=== PATIENT | female | born 1980 | race Asian ===

== ENCOUNTER 2016-10-11 09:30 | Observation (INO) | payer MEDICAID ==
[~2016-10-11] VITALS: Ht 134.6 cm; Wt 61.7 kg
[2016-10-11 10:16] VITALS: BP 113/67
== END 2016-10-11 10:40 | disposition home or self-care (01) ==
LOC: 4S 09:40
PROVIDERS: ADMIT Obstetrics & Gynecology; ATTEND Obstetrics & Gynecology
DX: Z34.93 Encounter for supervision of normal pregnancy, unspecified, third trimester (principal); Z3A.34 34 weeks gestation of pregnancy
CPT/HCPCS: 59025; G0378

== ENCOUNTER 2016-10-14 08:10 | Observation (INO) | payer MEDICAID ==
[~2016-10-14] VITALS: Ht 142.2 cm; Wt 62.9 kg
[2016-10-14] MEDS ORDERED: PREN1TAB80 PO (08:54)
== END 2016-10-14 09:40 | disposition home or self-care (01) ==
LOC: 4S 08:10
PROVIDERS: ADMIT Obstetrics & Gynecology; ATTEND Obstetrics & Gynecology
DX: Z34.93 Encounter for supervision of normal pregnancy, unspecified, third trimester (principal); Z3A.35 35 weeks gestation of pregnancy
CPT/HCPCS: 59025; G0378

== ENCOUNTER 2016-10-18 10:10 | Observation (INO) | payer MEDICAID ==
[~2016-10-18] VITALS: Ht 142.2 cm; Wt 64.0 kg
[~2016-10-18 10:10] MED LIST: PREN1TAB80 PO
[2016-10-18 10:23] VITALS: BP 106/67
== END 2016-10-18 11:10 | disposition home or self-care (01) ==
LOC: 4S 10:10
PROVIDERS: ADMIT Obstetrics & Gynecology; ATTEND Obstetrics & Gynecology
DX: O99.013 Anemia complicating pregnancy, third trimester (principal); Z3A.35 35 weeks gestation of pregnancy
CPT/HCPCS: 59025; G0378

== ENCOUNTER 2016-10-21 11:50 | Observation (INO) | payer MEDICAID ==
[~2016-10-21] VITALS: Ht 142.2 cm; Wt 64.4 kg
[2016-10-21 12:32] VITALS: BP 109/51
== END 2016-10-21 12:40 | disposition home or self-care (01) ==
LOC: 4S 11:50
PROVIDERS: ADMIT Obstetrics & Gynecology; ATTEND Obstetrics & Gynecology
DX: O09.523 Supervision of elderly multigravida, third trimester (principal); Z3A.35 35 weeks gestation of pregnancy
CPT/HCPCS: 59025; G0378

== ENCOUNTER 2016-10-25 14:13 | Observation (INO) | payer MEDICAID ==
[~2016-10-25] VITALS: Ht 134.6 cm; Wt 64.9 kg
[2016-10-25 14:32] VITALS: BP 111/67
== END 2016-10-25 14:55 | disposition home or self-care (01) ==
LOC: 4S 14:13
PROVIDERS: ADMIT Obstetrics & Gynecology; ATTEND Obstetrics & Gynecology
DX: Z34.93 Encounter for supervision of normal pregnancy, unspecified, third trimester (principal); Z3A.36 36 weeks gestation of pregnancy
CPT/HCPCS: 59025; G0378

== ENCOUNTER 2016-10-28 10:31 | Observation (INO) | payer MEDICAID ==
[~2016-10-28] VITALS: Ht 142.2 cm; Wt 64.4 kg
[2016-10-28 10:38] VITALS: BP 106/69
== END 2016-10-28 11:05 | disposition home or self-care (01) ==
LOC: 4S 10:31
PROVIDERS: ADMIT Obstetrics & Gynecology; ATTEND Obstetrics & Gynecology
DX: O09.523 Supervision of elderly multigravida, third trimester (principal); Z3A.37 37 weeks gestation of pregnancy
CPT/HCPCS: 59025; G0378

== ENCOUNTER 2016-11-01 11:05 | Observation (INO) | payer MEDICAID ==
[~2016-11-01] VITALS: Ht 142.2 cm; Wt 67.6 kg
[2016-11-01] MEDS ORDERED: FERR-89 PO (11:20)
[2016-11-01 11:21] VITALS: BP 98/56
== END 2016-11-01 12:20 | disposition home or self-care (01) ==
LOC: 4S 11:05
PROVIDERS: ADMIT Obstetrics & Gynecology; ATTEND Obstetrics & Gynecology
DX: O99.013 Anemia complicating pregnancy, third trimester (principal); O09.523 Supervision of elderly multigravida, third trimester; Z3A.37 37 weeks gestation of pregnancy
CPT/HCPCS: 59025; G0378

== ENCOUNTER 2016-11-04 10:25 | Observation (INO) | payer MEDICAID ==
[~2016-11-04] VITALS: Ht 142.2 cm; Wt 64.4 kg
[~2016-11-04 10:25] MED LIST changes: +FERR-89 PO
[2016-11-04 11:15] VITALS: BP 101/65
== END 2016-11-04 11:10 | disposition home or self-care (01) ==
LOC: 4S 10:25
PROVIDERS: ADMIT Obstetrics & Gynecology; ATTEND Obstetrics & Gynecology
DX: Z34.93 Encounter for supervision of normal pregnancy, unspecified, third trimester (principal); Z3A.38 38 weeks gestation of pregnancy
CPT/HCPCS: 59025; G0378

== ENCOUNTER 2016-11-08 10:20 | Observation (INO) | payer MEDICAID ==
[~2016-11-08] VITALS: Ht 134.6 cm; Wt 64.9 kg
[~2016-11-08 10:20] MED LIST changes: -FERR-89 PO; +FERS325 PO
[2016-11-08 10:27] VITALS: BP 104/56
[2016-11-13] MEDS ORDERED: FERS325 PO (12:18)
== END 2016-11-08 11:15 | disposition home or self-care (01) ==
LOC: 4S 10:20
PROVIDERS: ADMIT Obstetrics & Gynecology; ATTEND Obstetrics & Gynecology
DX: O26.893 Other specified pregnancy related conditions, third trimester (principal); B95.1 Streptococcus, group B, as the cause of diseases classified elsewhere; O09.523 Supervision of elderly multigravida, third trimester; Z3A.38 38 weeks gestation of pregnancy
CPT/HCPCS: 59025; G0378

== ENCOUNTER 2016-11-11 06:08 | Inpatient (IN) | payer MEDICAID ==
[~2016-11-11] VITALS: Ht 147.3 cm; Wt 64.4 kg
[~2016-11-11 06:08] MED LIST changes: +FERR-89 PO; -FERS325 PO; +RINGERS SOLUTION,LACTATED 1,000 ML IV ONE
[2016-11-11] MEDS ORDERED: CITRIC ACID/SODIUM CITRATE 30 ML SOLUTION UDCUP PO ONE (06:15)
[2016-11-11] MEDS ORDERED: METOCLOPRAMIDE HCL 5 MG/ML 2 ML VIAL IVP ONE (06:15)
[2016-11-11 06:16] VITALS: BP 113/67
[2016-11-11 06:56] LABS: BASOPHILS # (AUTO) 0.03 K/uL (0.00-0.20); BASOPHILS % (AUTO) 0.4 % (0.0-2.0); EOSINOPHILS # (AUTO) 0.13 K/uL (0.00-0.70); EOSINOPHILS % (AUTO) 1.91 % (1.0-6.0); HEMATOCRIT 29.5 % (36-46); HEMOGLOBIN 10.1 g/dL (12.0-16.0); LYMPHOCYTES % (AUTO) 29.9 % (22.0-44.0); MEAN CORPUSCULAR HEMOGLOBIN 31.5 pg (26.0-34.0); MEAN CORPUSCULAR HGB CONC 34.3 G/dL (31.0-37.0); MEAN CORPUSCULAR VOLUME 92 fL (80-100); MONOCYTES # (AUTO) 0.4 K/uL (0.1-1.0); MONOCYTES % (AUTO) 6.7 % (2.0-9.0); NEUTROPHILS # (AUTO) 4.1 K/uL (1.8-7.7); NEUTROPHILS % (AUTO) 61.1 % (40.0-70.0); RED BLOOD CELL COUNT(AUTO) 3.21 MIL/uL (4.00-5.20); RED CELL DISTRIBUTION WIDTH 12.5 % (11.5-14.5); WHITE BLOOD COUNT (AUTO) 6.6 K/uL (4.5-11.0)
[2016-11-11] MEDS ORDERED: CeFAZolin 2 GM/DEXTROSE 50 ML IV ONE (07:11)
[2016-11-11] MEDS ORDERED: RINGERS SOLUTION,LACTATED 1,000 ML IV ONE ×2 (07:12→09:13)
[2016-11-11] MEDS ORDERED: MORPHINE SULFATE/PF 0.5 MG/ML 10 ML AMP ONE (07:12)
[2016-11-11] MEDS ORDERED: FentaNYL CITRATE-PF 100 MCG/2 ML VIAL ONE (07:12)
[2016-11-11] MEDS ORDERED: SODIUM CHLORIDE 0.9% 100 ML ONE ×2 (07:29→07:37)
[2016-11-11] MEDS ORDERED: GUM MASTIC/STORAX/MSAL/ALCOHOL LIQUID 0.67 ML VIAL TP ONE (07:46)
[2016-11-11] MEDS ORDERED: ACETAMINOPHEN 1000 MG/ISO-OSM 100 ML IV ONE ×2 (08:30→10:03)
[2016-11-11] MEDS ORDERED: KETOROLAC TROMETHAMINE 30 MG/ML VIAL IVP ONE (08:30)
[2016-11-11] MEDS ORDERED: FentaNYL CITRATE-PF 100 MCG/2 ML VIAL IVP PRN ×2 (08:30)
[2016-11-11] MEDS ORDERED: ONDANSETRON HCL 4 MG/2 ML VIAL IVP PRN ×2 (08:30)
[2016-11-11] MEDS ORDERED: MEPERIDINE-PF 25 MG/ML SYRINGE IVP PRN (08:30)
[2016-11-11] MEDS ORDERED: NALBUPHINE HCL 10 MG/ML VIAL IVP PRN ×3 (08:30)
[2016-11-11] MEDS ORDERED: DiphenhydrAMINE HCL 50 MG/ML VIAL IVP PRN ×2 (08:30)
[2016-11-11] MEDS ORDERED: DEXAMETHASONE SOD PHOS 4 MG/ML VIAL IVP PRN (08:30)
[2016-11-11] MEDS ORDERED: NALOXONE HCL 0.4 MG/ML VIAL IVP PRN (08:30)
[2016-11-11] MEDS ORDERED: KETOROLAC TROMETHAMINE 30 MG/ML VIAL IVP PRN (08:45)
[2016-11-11] MEDS ORDERED: PROMETHAZINE HCL 25 MG/ML VIAL IM ONE (09:15)
[2016-11-11] MEDS ORDERED: RINGERS SOLUTION,LACTATED 1,000 ML IV SCH (10:23)
[2016-11-11] MEDS ORDERED: LANOLIN 7 GM OINTMENT TP PRN (10:30)
[2016-11-11] MEDS ORDERED: MAGNESIUM HYDROXIDE SUSPENSION 30 ML UDCUP PO PRN (10:30)
[2016-11-11] MEDS ORDERED: MEASLES/MUMPS/RUBELLA VACCINE, LIVE 0.5 ML/VIAL SQ ONE (10:30)
[2016-11-11] MEDS ORDERED: OXYTOCIN 10 UNITS/ML VIAL IM ONE (12:00)
[2016-11-11] MEDS ORDERED: EPHEDrine SULFATE 50 MG/ML VIAL IM ONE (12:00)
[2016-11-11] MEDS ORDERED: PHENYLEPHRINE HCL 10 MG/ML VIAL IVP ONE (12:00)
[2016-11-11] MEDS ORDERED: 0.9% SODIUM CHLORIDE 10 ML VIAL IVP ONE (12:00)
[2016-11-11] MEDS ORDERED: ONDANSETRON HCL 4 MG/2 ML VIAL IVP ONE (12:00)
[2016-11-11] MEDS: ACETAMINOPHEN 1000 MG/ISO-OSM 100 ML IV PRN (18:05)
[2016-11-11] MEDS ORDERED: OXYGEN THERAPY IH SCH ×4 (20:00)
[2016-11-12] MEDS: ACETAMINOPHEN 1000 MG/ISO-OSM 100 ML IV PRN (03:03)
[2016-11-12 04:28] LABS: BASOPHILS % (AUTO) 0.4 % (0.0-2.0); EOSINOPHILS % (AUTO) 0.2 % (1.0-6.0); HEMATOCRIT 29.6 % (36-46); HEMOGLOBIN 9.9 g/dL (12.0-16.0); LYMPHOCYTES % (AUTO) 14.9 % (22.0-44.0); MEAN CORPUSCULAR HGB CONC 33.5 G/dL (31.0-37.0); MEAN CORPUSCULAR VOLUME 93 fL (80-100); MONOCYTES # (AUTO) 0.6 K/uL (0.1-1.0); MONOCYTES % (AUTO) 4.1 % (2.0-9.0); NEUTROPHILS # (AUTO) 10.7 K/uL (1.8-7.7); NEUTROPHILS % (AUTO) 80.4 % (40.0-70.0); RED BLOOD CELL COUNT(AUTO) 3.19 MIL/uL (4.00-5.20); RED CELL DISTRIBUTION WIDTH 12.5 % (11.5-14.5); WHITE BLOOD COUNT (AUTO) 13.3 K/uL (4.5-11.0)
[2016-11-12] MEDS: IBUPROFEN 800 MG TABLET PO PRN (08:19)
[2016-11-12] MEDS ORDERED: IBUPROFEN 800 MG TABLET PO PRN (10:30)
[2016-11-12] MEDS ORDERED: ACETAMINOPHEN/CODEINE 300-30 MG TABLET PO PRN ×2 (10:30)
[2016-11-13] MEDS: IBUPROFEN 800 MG TABLET PO PRN ×3 (00:44→13:12)
[2016-11-13] MEDS ORDERED: PERCT PO (12:16)
[2016-11-13] MEDS ORDERED: DSS100 PO (12:17)
[2016-11-13] MEDS ORDERED: FERR-89 PO (12:18)
== END 2016-11-13 15:00 | disposition home or self-care (01) | DRG 540 ==
LOC: 4S 06:08 → PREOBSVTOIN 11-27 06:13
PROVIDERS: ADMIT Obstetrics & Gynecology; ATTEND Obstetrics & Gynecology
PROC: 10D00Z1 Extraction of Products of Conception, Low, Open Approach (ICD-10-PCS; principal; 2016-11-11)
PROC: 0UB70ZZ Excision of Bilateral Fallopian Tubes, Open Approach (ICD-10-PCS; 2016-11-11)
DX: O34.211 Maternal care for low transverse scar from previous cesarean delivery (principal); N85.8 Other specified noninflammatory disorders of uterus; O09.523 Supervision of elderly multigravida, third trimester; Z3A.39 39 weeks gestation of pregnancy; Z37.0 Single live birth; Z30.2 Encounter for sterilization
CPT/HCPCS: 86850; 86900; 86901; 87081; 88302; J0131; J0690; J2274; J2300; J2370; J2405; J2590; J2765; J3010; J3490; J7050; J7120